=== PATIENT | female | born 1935 | race Caucasian/White ===

== ENCOUNTER 2017-05-07 19:01 | Emergency (ER) | payer MEDICARE, OTHER ==
[~2017-05-07] VITALS: Ht 162.6 cm; Wt 70.9 kg
[~2017-05-07 19:01] MED LIST: ACET-171 PO; ANAS1TAB7 PO; ASCO100089 PO; ATOR20TA PO; CHOL10008 PO; DILT240C87 PO; DILT30TA PO; HYDR-4003 PO; HYDR25TA4 PO; OMEG-38 PO; OXYC5CAP4 PO; POTA20TA16 PO; RANI150C4 PO; TRAM50TA2 PO; VIT E PO; WARF5TAB7 PO
[2017-05-07 19:08] VITALS: BP 158/67; PULSE 79; RESP 20; O2SAT 98
--- NOTE | 2017-05-07 20:22 | DRSVH ---
PROCEDURE: X-RAY LEFT RIBS, TWO VIEWS ([id number]) INDICATIONS: injury, pain TECHNIQUE: 2 views of the left ribs were acquired. COMPARISON: None. FINDINGS: Surgical changes and devices: None. Bones and chest wall: No fractures or dislocations. No suspicious bony lesions. Overlying soft tis sues appear unremarkable. Lungs and pleura: The visualized lung appears clear. No pleural effusions or pneumothorax are visib le. IMPRESSION: No displaced rib fracture identified. Dictated by: Laurence Kendall MD, PhD on 05/07/2017 at 20:20 Approved by: Laurence Kendall MD, PhD on 05/07/2017 at 20:21
--- NOTE | 2017-05-07 20:25 | DRSVH ---
PROCEDURE: X-RAY LEFT HAND, MINIMUM THREE VIEWS ([id number]) INDICATIONS: injury, pain TECHNIQUE: 3 views of the hand(s) acquired. COMPARISON: None. FINDINGS: Bones: Small avulsion fracture off the tip of the radial styloid process noted. Carpal bones are no rmally aligned. Deformity of the base of the fifth metatarsal. Wrist and interphalangeal joint osteo arthritic degenerative changes noted. Soft tissues: No suspicious soft tissue calcifications. IMPRESSION: 1. Small avulsion fracture of the tip of the radial styloid process. 2. Deformity of the base of the fifth metatarsal suspicious for fracture of indeterminate age. Plea se correlate with clinical data. Dictated by: Laurence Kendall MD, PhD on 05/07/2017 at 20:21 Approved by: Laurence Kendall MD, PhD on 05/07/2017 at 20:24
--- NOTE | 2017-05-07 21:05 | ED.REPORT ---
HPI-General Illness Date of Service May 07, 2017 ED Provider: Shelton Lewis MD Pt is a 82 year old female on Coumadin with a history of atrial fibrillation, hypertension and a mastectomy one year ago who presents to the ED complaining of left-sided rib pain onset today when she had a ground level fall. She also complains of left shoulder pain and left wrist pain, and a headache that has resolved. Pt denies LOC, significant head trauma or shortness of breath. She had trivial impact to her left eyebrow that she did not even mention initially, but has a very small jennifer there apparently incurred this evening. Her concern centers entirely around her injured left wrist and ribs. Nursing Notes Stated Complaint: FALL Chief Complaint: Extremity Trauma Nursing Notes Reviewed: Yes Allergies: Coded Allergies: alendronate sodium (Verified Allergy, Unknown, increased joint pain, ) Scheduled ([Vit E]) 1 TAB PO DAILY Anastrozole (Anastrozole) 1 Mg Tablet 1 MG PO DAILY Ascorbic Acid (Vitamin C) 1,000 Mg Tab.chew 1,000 MG PO DAILY Atorvastatin (Lipitor) 20 Mg Tablet 20 MG PO HS Cholecalciferol (Vitamin D3) (Vitamin D3) 1,000 Unit Tab.chew 1,000 UNIT PO DAILY Diltiazem (Diltiazem) 30 Mg Tablet 30 MG PO PRN Diltiazem ER (Diltiazem ER) 240 Mg Capsule.er 240 MG PO DAILY Hydrochlorothiazide (Hydrochlorothiazide) 25 Mg Tablet 50 MG PO QAM [place]-3/Dha/Epa/Fish Oil (Fish Oil 1,000 mg Softgel) 1 Each Capsule 1 EACH PO DAILY Potassium Chloride (Potassium Chloride) 20 Meq Tab.er.prt 20 MEQ PO BID TAKE WITH FOOD Ranitidine (Ranitidine) 150 Mg Capsule 150 MG PO HS Warfarin Sodium (Warfarin Sodium) 5 Mg Tablet 5 MG PO DAILY Scheduled PRN Acetaminophen (Acetaminophen) 500 Mg Tablet 500 MG PO Q6H PRN PRN For Pain Hydrocodone-Acetaminophen 5-325 mg (Hydrocodone-Acetaminophen 5-325 mg) 1 Each Tablet 0.5 TABLET PO Q4H PRN PRN For Pain Tramadol (Tramadol) 50 Mg Tablet 50 MG PO BID PRN PRN For Pain oxyCODONE (oxyCODONE) 5 Mg Capsule 5-10 MG PO Q4H PRN PRN For Pain General Time Seen by MD: 21:02 Chief Complaint Other (Left-sided rib pain) Hx Obtained From: Patient Arrived By: Walk-in Sudden in Onset?: Yes Onset Occurred: Just prior to arrival Symptom Duration: Since onset Caused by: Fall on ground Recent Healthcare: No recent doctor visit, No recent hospitalization Similar Sx Previous: No Past Medical History Past Medical History Dizziness breast cancer Reports: GERD, Hypertension Reports: Atrial fibrillation Past Surgical History Masectomy Right hip replacement Hysterectomy/BSO Vein stripping Reports: Tonsillectomy Smoking History Never Smoker Ambulatory Status Independent Review of Systems Rib pain Full Review of Systems Respiratory: Denies: Non-productive cough, Shortness of breath Cardiovascular: Denies: Chest pain GI: Denies: Abdominal pain, Vomiting Musculoskeletal: Reports: Extremity pain (Shoulder and wrist), Denies: Neck pain Skin: Denies Rash Neurologic: Reports: Headache (Resolved), Denies: Change LOC Complete sys rev & neg: except as marked. Physical Exam Vital Signs Vital Signs Date Time Temp Pulse Resp B/P Pulse Ox O2 Delivery O2 Flow Rate FiO2 05/07/17 19:08 36.6 79 20 158/67 98 Room Air Initial VS: Reviewed General/Constitutional: Awake, Alert Head / Eyes: Normocephalic, PERRL, EOMI bruising and tenderness of the left eyebrow no other head tenderness ENT: Atraumatic, Airway patent, Mucous membranes moist Neck: Atraumatic, Supple, Full range of motion Respiratory / Chest: Breath sounds NL, Breath sounds = bilat, No respiratory distress left-sided rib tenderness Cardiovascular: Heart rate NL, Regular rhythm, Heart sounds NL Abdomen: Atraumatic, Soft, Non-tender Back: Atraumatic, Inspection NL, Full range of motion Upper Extremities Upper Extremity / MS: Neurologic intact, Vascular intact Bruise on the dorsum of the left hand overlying the proximal end of the 5th metacarpal Tenderness of the left hand Skin: Atraumatic, Color NL, No rash, Warm, Dry Neurologic: Oriented X3, Speech NL, No motor deficits, No sensory deficits Interpretation & Diagnostics Interpretation & Diagnostics: Rib X-ray IMPRESSION: No displaced rib fracture identified. Dictated by: Laurence Kendall MD, PhD on 05/07/2017 at 20:20 Approved by: Laurence Kendall MD, PhD on 05/07/2017 at 20:21 Lab Results Interpretation Test 05/07/17 22:05 Hold Purple Top Tube Received (Received) Prothrombin Time 20.1sec (8.1-12.5) Prothromb Time International Ratio 1.85ratio Hold [place] Top Tube Received (Received) X-Ray Interpretation Xray Interpretation: IMPRESSION: 1. Small avulsion fracture of the tip of the radial styloid process. 2. Deformity of the base of the fifth metatarsal suspicious for fracture of indeterminate age. Please correlate with clinical data. Dictated by: Laurence Kendall MD, PhD on 05/07/2017 at 20:21 Approved by: Laurence Kendall MD, PhD on 05/07/2017 at 20:24 X-Ray Ordered: Hand left Interpretation / Wet Read by: Interpret - Radiologist Xray Interpretation: CT Head Interpretation IMPRESSION: No acute intracranial disease process. Dictated by: Laurence Kendall MD, PhD on 05/07/2017 at 21:52 Approved by: Laurence Kendall MD, PhD on 05/07/2017 at 21:54 Interpretation / Wet Read by: Interpret - Radiologist Procedures Splint Application - Fx Mgt Splint Application- Fx Mgt: Thumb spica Time: 22:35 Procedure Performed by: ED physician Precise Anatomic Location: Left hand Type of Immobilization: Macy tape (3rd,4th,5th) Definitive Fracture Care: Splint Post-Procedure / Complications: Cap refill normal, Post splint vascular nl, Post splint neuro nl, Condition improved, Tolerated procedure well, Patient stable Re-Eval/Medical Decision Med Decision/Clinical Course 82-year-old female with a probable fall mechanical in nature, with a trivial head impact and a negative CT. She is fortunately not much anticoagulated with an INR 1.82. She has a fracture of the tip of the ulnar styloid and another fracture at the base the fifth metacarpal. This was secured with macy taping of the third fourth and fifth fingers, a wrist splint, and Kranthi wrap over the hand to secure the hand to the wrist. 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 Vicodin when necessary pain. Discharged in stable and improved condition with standard head precautions. Source of Hx: Old records Time of Eval: 21:02 Patient Status: Condition improved Re-Evaluation/Progress Note: Pt informed diagnosis and plan for discharge in the initial interview. Pt understands and agrees with plan. F/U instructions and RTER warnings given. All questions addressed. Counseled Regarding: Diagnosis, Lab results, Need for follow-up, When/why to return to ED Discharge & Departure Primary Impression: Wrist fracture, closed Encounter type: initial encounter Laterality: left Qualified Code: S62.102A - Fracture of unspecified carpal bone, left wrist, initial encounter for closed fracture Additional Impressions: Minor head injury without loss of consciousness Encounter type: initial encounter Qualified Code: S09.90XA - Unspecified injury of head, initial encounter Chronic anticoagulation Hand fracture, left Encounter type: initial encounter Fracture type: closed Qualified Code: S62.92XA - Unspecified fracture of left wrist and hand, initial encounter for closed fracture Disposition: Home Discharge Condition All VS Reviewed: Yes Condition: Stable Patient Instructions: Hand Fracture (ED), Wrist Fracture in Adults (ED) Additional Instructions: Wear splint and macy tape full-time. Elevate the hand and wrist whenever possible above the level of the heart. Ice frequently over the first twenty- four hours. Call orthopedics tomorrow morning for follow-up. Follow-up with your doctor also. Refer to head injury instructions for additional precautions. Referrals: Gerald May MD (PCP) Ran Stevenson MD Scribe Attestation Portions of this note were transcribed by Missy Florez and Holly Preciado. I, personally performed the history, physical exam and medical decision- making; I reviewed and confirmed the accuracy of the information in the transcribed note. copies to: Gerald May MD; Ran Stevenson MD Risk-Head CT Imagining Head CT Imaging Inclusion Criteria: >/= 16 yo age GCS of 14 OR 15 Non Pentrating Injury Presentation w/in 24 hrs. Patient Presents WITHOUT: Loss of Conciousness, PostTraumatic Amnesia, PROCEED W/ CONSIDERATIONS Consider Non Contrast CT for: >/= 60 yo Age WITHOUT LOCNo Auto vs Pedestrian, No Fall Down Steps >/= 5 RF Statements: Risk factors reviewed Shelton Lewis MD May 07, 2017 21:05 Missy Florez May 07, 2017 21:15 HOLLY PRECIADO May 07, 2017 22:42
--- NOTE | 2017-05-07 21:56 | DRSVH ---
PROCEDURE: CT BRAIN WITHOUT CONTRAST ([id number]) INDICATIONS: fall, impact on left brow, on coumadin TECHNIQUE: Noncontrast 4.5 mm thick angled axial sections acquired from the foramen magnum to the vertex, with c oronal reformats. COMPARISON: None. FINDINGS: Image quality: Excellent. CSF spaces: Basal cisterns are patent. No extra-axial fluid collections. The ventricles are symmet khadijah in size and shape. Brain: No intracranial bleeds or masses. There is cerebral volume loss for age, with resultant vent ricular and sulcal prominence. There are periventricular and deep white matter chronic small vessel ischemic changes. There is intracranial internal carotid artery atherosclerosis. Skull and face: Calvarium and visualized facial bones appear intact, without suspicious lesions. Sinuses: Visualized sinuses and mastoids are clear. IMPRESSION: No acute intracranial disease process. Dictated by: Laurence Kendall MD, PhD on 05/07/2017 at 21:52 Approved by: Laurence Kendall MD, PhD on 05/07/2017 at 21:54
[2017-05-07 22:23] LABS: INR 1.85 ratio
[2017-05-07] MEDS ORDERED: _HYDROcodone/APAP 5-325 mg Tablet PO PRN (22:25)
== END 2017-05-07 22:36 | disposition home or self-care (01) ==
LOC: SED 19:01
DX: S52.512A Displaced fracture of left radial styloid process, initial encounter for closed fracture (principal); S62.317A Displaced fracture of base of fifth metacarpal bone, left hand, initial encounter for closed fracture; S09.8XXA Other specified injuries of head, initial encounter; W18.39XA Other fall on same level, initial encounter; Y93.9 Activity, unspecified; Y92.9 Unspecified place or not applicable; Y99.9 Unspecified external cause status; I10 Essential (primary) hypertension; K21.9 Gastro-esophageal reflux disease without esophagitis; Z85.3 Personal history of malignant neoplasm of breast; Z79.01 Long term (current) use of anticoagulants; Z88.8 Allergy status to other drugs, medicaments and biological substances